=== PATIENT | male | born 1985 | race African-American/Black ===

== ENCOUNTER → 2024-11-03 | Emergency (ER) | payer OTHER ==
[~2024-11-03] VITALS: Ht 175.3 cm; Wt 73.0 kg
[2024-11-03 12:28] VITALS: O2SAT 100
[2024-11-03 13:01] VITALS: BP 102/65; PULSE 60; RESP 16; TEMP 36.9; O2SAT 98
== END ==
LOC: ER 12:08
DX: B34.9 Viral infection, unspecified (principal); J45.909 Unspecified asthma, uncomplicated
CPT/HCPCS: 99281